=== PATIENT | female | born 1990 | race Two or more races ===

== ENCOUNTER 2016-12-27 09:38 | Observation (INO) | payer SELFPAY ==
[~2016-12-27] VITALS: Ht 152.4 cm; Wt 56.7 kg
[2016-12-27] MEDS ORDERED: IV NORMAL SALINE 1000ML BAG 1,000 ML IV SCH ×2 (10:13→12:15)
--- NOTE | 2016-12-27 10:17 | PHYS DOC ---
Past Medical History Past Medical History: No Pertinent History Past Surgical History: No Surgical History Alcohol Use: None Drug Use: None Adult General Chief Complaint Chief Complaint: VAGINAL BLEEDING HPI HPI Patient is a 26 year old female who presents with complaint of vaginal bleeding and lower abdominal pain. The patient is A1 approximately 17 weeks with last menstrual period August 29, 2016. The patient states that she has had continued spotting off and on during her but started having heavy bleeding and cramping at approximately 0800 this morning. Patient rates pain currently is 8 out of 10. Patient states that the pain stays in her pelvis. The patient has been having heavier bleeding but denies passage of tissue or clot. Patient follows with [facility] for care. Patient had a miscarriage at 2 months during her second . Patient denies any fevers or urinary symptoms. Review of Systems Review of Systems Constitutional: Denies fever or chills [] Eyes: Denies change in visual acuity, redness, or eye pain [] HENT: Denies nasal congestion or sore throat [] Respiratory: Denies cough or shortness of breath [] Cardiovascular: Denies chest pain or edema [] GI: Denies abdominal pain, nausea, vomiting, bloody stools or diarrhea [] : Pelvic pain, vaginal bleeding [] Musculoskeletal: Denies back pain or joint pain [] Integument: Denies rash or skin lesions [] Neurologic: Denies headache, focal weakness or sensory changes [] Current Medications Current Medications Current Medications Medications (Trade) Dose Ordered Sig/Maryann Start Time Stop Time Status Last Admin Dose Admin Sodium Chloride (Iv Sodium Chloride 0.9% 1000ml Bag) 1,000 ml @ 1,000 mls/hr Q1H 12/27/16 10:13 12/27/16 11:12 DC 12/27/16 10:10 1,000 MLS/HR Allergies Allergies Allergies Coded Allergies Type Severity Reaction Last Updated Verified No Known Drug Allergies 12/27/16 No Physical Exam Physical Exam Constitutional: Alert, afebrile, no acute distress. [] HENT: Normocephalic, atraumatic, bilateral external ears normal, oropharynx moist, no oral exudates, nose normal. [] Eyes: PERRLA, EOMI, conjunctiva normal, no discharge. [] Neck: Normal range of motion, no tenderness, supple, no stridor. [] Cardiovascular:Heart rate regular rhythm, no murmur [] Lungs & Thorax: Bilateral breath sounds clear to auscultation [] Abdomen: Bowel sounds normal, soft, no tenderness, no masses, no pulsatile masses. [] Skin: Warm, dry, no erythema, no rash. [] Back: No tenderness, no CVA tenderness. [] Extremities: No tenderness, no cyanosis, no clubbing, ROM intact, no edema. [] Neurologic: Alert and oriented X 3, normal motor function, normal sensory function, no focal deficits noted. [] Current Patient Data Vital Signs Vital Signs Date Time Temp Pulse Resp B/P Pulse Ox O2 Delivery O2 Flow Rate FiO2 12/27/16 11:30 74 15 108/57 99 12/27/16 09:43 98.6 Room Air 98.6 Lab Values Laboratory Tests Test 12/27/16 10:06 White Blood Count 16.1x10^3/uL (4.0-11.0) H Red Blood Count 4.71x10^6/uL (3.50-5.40) Hemoglobin 13.7g/dL (12.0-15.5) Hematocrit 40.5% (36.0-47.0) Mean Corpuscular Volume 86fL (79-100) Mean Corpuscular Hemoglobin 29pg (25-35) Mean Corpuscular Hemoglobin Concent 34g/dL (31-37) Red Cell Distribution Width 13.4% (11.5-14.5) Platelet Count 218x10^3/uL (140-400) Neutrophils (%) (Auto) 82% (31-73) H Lymphocytes (%) (Auto) 11% (24-48) L Monocytes (%) (Auto) 4% (0-9) Eosinophils (%) (Auto) 2% (0-3) Basophils (%) (Auto) 1% (0-3) Neutrophils # (Auto) 13.3x10^3uL (1.8-7.7) H Lymphocytes # (Auto) 1.8x10^3/uL (1.0-4.8) Monocytes # (Auto) 0.6x10^3/uL (0.0-1.1) Eosinophils # (Auto) 0.4x10^3/uL (0.0-0.7) Basophils # (Auto) 0.1x10^3/uL (0.0-0.2) Segmented Neutrophils % 88% (35-66) H Lymphocytes % 7% (24-48) L Monocytes % 3% (0-10) Eosinophils % 2% (0-5) Platelet Estimate Adequate (ADEQUATE) Prothrombin Time 12.6SEC (11.7-14.0) Prothrombin Time INR 1.0 (0.8-1.1) PTT 33SEC (24-38) Urine Color Yellow Urine Clarity Clear Urine pH 8.0 Urine Specific [place] 1.010 Urine Protein Negativemg/dL (NEG-TRACE) Urine Glucose (UA) Negativemg/dL (NEG) Urine Ketones (Stick) Negativemg/dL (NEG) Urine Blood Large (NEG) Urine Nitrite Negative (NEG) Urine Bilirubin Negative (NEG) Urine Urobilinogen Dipstick 0.2mg/dL (0.2 mg/dL) Urine Leukocyte Esterase Trace (NEG) Urine RBC 0/HPF (0-2) Urine WBC 1-4/HPF (0-4) Urine Bacteria 0/HPF (0-FEW) Sodium Level 141mmol/L (136-145) Potassium Level 3.8mmol/L (3.5-5.1) Chloride Level 106mmol/L (98-107) Carbon Dioxide Level 26mmol/L (21-32) Anion Gap 9 (6-14) Blood Urea Nitrogen 7mg/dL (7-20) Creatinine 0.4mg/dL (0.6-1.0) L Estimated GFR (Cockcroft-Gault) 194.5 BUN/Creatinine Ratio 18 (6-20) Glucose Level 79mg/dL (70-99) Calcium Level 8.9mg/dL (8.5-10.1) Magnesium Level 1.7mg/dL (1.8-2.4) L Total Bilirubin 0.4mg/dL (0.2-1.0) Aspartate Amino Transferase (AST) 36U/L (15-37) Alanine Aminotransferase (ALT) 95U/L (14-59) H Alkaline Phosphatase 96U/L (46-116) Total Protein 6.9g/dL (6.4-8.2) Albumin 3.3g/dL (3.4-5.0) L Albumin/Globulin Ratio 0.9 (1.0-1.7) L Laboratory Tests 3/18/17 10:06 Laboratory Tests 12/27/16 10:06 EKG EKG Not performed [] Radiology/Procedures Radiology/Procedures [facility] [address] [place], [place] [id number] IMAGING REPORT Signed PATIENT: KEYONNA CASTILLO ACCOUNT: [id number] : 1990 LOCATION: ER AGE: 26 SEX: F EXAM STATUS: REG ER ORD. PHYSICIAN: KERI EL MD REASON: vaginal bleeding PROCEDURE: PREG MORE THAN OR EQ TO 14 WKS Indication: Vaginal bleeding. Technique: Second trimester limited OB ultrasound was performed. No comparison for this is provided. Findings: There is an intrauterine noted with heart tones of 124 bpm. However, amniotic fluid is decreased with little fluid surrounding the fetus. There is some fluid in the lower uterine segment and the majority of the fluid is noted within an open cervix. Absence of fluid limits evaluation. Full survey was not performed in this early second trimester patient. Presentation is breech. Placenta is not well evaluated. Largest pocket of fluid is almost entirely within the cervix, 7.6 cm. No pockets of fluid within each quadrant are identified. Estimated gestational age by ultrasound is 15 weeks 5 days for an QUIN by ultrasound of June 15, 2017. Biparietal diameter measures 3.01 cm, 15 weeks 4 days. Head circumference measures 11.43 cm, 15 weeks 4 days. Abdominal circumference measures 9.80 cm, 15 weeks 6 days. Femur length measures 1.92 cm, 15 weeks 5 days. HC/AC ratio is 1.17. Estimated weight is not able to be calculated this early in the second trimester. Maternal ovaries are visualized and grossly unremarkable. Case was discussed with Dr. El. Impression: 1. Abnormal exam with the majority of the amniotic fluid noted in the open cervical canal and in the lower uterine segment. Very minimal fluid is noted surrounding the fetus. Oligohydramnios. 2. Fetus measures 15 weeks 5 days with heart tones of 124 bpm. 3. Short-term follow-up to reevaluate the amount of amniotic fluid is recommended. DICTATED and SIGNED BY: VALERIANO CAMERON MD DATE: 12/27/16 1058 CC: KERI EL MD; UNKNOWN PCP NAME ~ [] Course & Med Decision Making Course & Med Decision Making Pertinent Labs and Imaging studies reviewed. (See chart for details) The patient started on IV fluids in the emergency department. Patient's ultrasound results were reported to me by the radiologist, Dr. Cameron. He stated that it appeared the amniotic fluid was protruding through the internal os into the vaginal canal. He recommended consult to [facility] before performing a pelvic exam. I spoke with Dr. Campo of [facility] who agreed and asked that the patient be admitted to her service and would see the patient in hospital as this appears to be an expectant miscarriage. She asked that the patient be admitted under observation care. Dragon Disclaimer Dragon Disclaimer This electronic medical record was generated, in whole or in part, using a voice recognition dictation system. Departure Departure Impression: Primary Impression: Incomplete miscarriage Disposition: ADMITTED INPATIENT Admitting Physician: Other Condition: STABLE KERI EL MD Dec 27, 2016 10:17
[2016-12-27 10:24] LABS: BASO # 0.1 x10^3/uL (0.0-0.2); BASO % 1 % (0-3); EOS % 2 % (0-3); HEMATOCRIT 40.5 % (36.0-47.0); HEMOGLOBIN 13.7 g/dL (12.0-15.5); LYMPH # 1.8 x10^3/uL (1.0-4.8); LYMPH % 11 % (24-48); MEAN CORPUSCULAR HEMOGLOBIN 29 pg (25-35); MEAN CORPUSCULAR HGB CONC 34 g/dL (31-37); MEAN CORPUSCULAR VOLUME 86 fL (79-100); MONO % 4 % (0-9); NEUT % 82 % (31-73); PLATELET COUNT 218 x10^3/uL (140-400); RED BLOOD COUNT 4.71 x10^6/uL (3.50-5.40); RED CELL DISTRIBUTION WIDTH 13.4 % (11.5-14.5); WHITE BLOOD COUNT 16.1 x10^3/uL (4.0-11.0)
[2016-12-27 10:27] LABS: BILIRUBIN,URINE NEGATIVE (NEG); GLUCOSE,URINE NEGATIVE (NEG); NITRITE,URINE NEGATIVE (NEG); PROTEIN,URINE NEGATIVE (NEG-TRACE); UROBILINOGEN,URINE 0.2 mg/dL (0.2 mg/dL)
[2016-12-27 10:32] LABS: CALCIUM 8.9 mg/dL (8.5-10.1); CREATININE 0.4 mg/dL (0.6-1.0); GFR 194.5; POTASSIUM 3.8 mmol/L (3.5-5.1); PROTHROMBIN TIME PATIENT 12.6 SEC (11.7-14.0)
[2016-12-27 10:38] LABS: ALBUMIN 3.3 g/dL (3.4-5.0); ALBUMIN/GLOBULIN RATIO 0.9 (1.0-1.7); MAGNESIUM 1.7 mg/dL (1.8-2.4); TOTAL BILIRUBIN 0.4 mg/dL (0.2-1.0); TOTAL PROTEIN 6.9 g/dL (6.4-8.2)
[2016-12-27 10:39] LABS: BACTERIA,URINE 0 /HPF (0-FEW); RBC,URINE 0 /HPF (0-2)
[2016-12-27 11:02] LABS: % EOS 2 % (0-5); PLT ESTIMATE ADEQUATE (ADEQUATE)
--- NOTE | 2016-12-27 11:19 | RAD ---
Indication: Vaginal bleeding. Technique: Second trimester limited OB ultrasound was performed. No comparison for this is provided. Findings: There is an intrauterine noted with heart tones of 124 bpm. However, amniotic fluid is decreased with little fluid surrounding the fetus. There is some fluid in the lower uterine segment and the majority of the fluid is noted within an open cervix. Absence of fluid limits evaluation. Full survey was not performed in this early second trimester patient. Presentation is breech. Placenta is not well evaluated. Largest pocket of fluid is almost entirely within the cervix, 7.6 cm. No pockets of fluid within each quadrant are identified. Estimated gestational age by ultrasound is 15 weeks 5 days for an QUIN by ultrasound of June 15, 2017. Biparietal diameter measures 3.01 cm, 15 weeks 4 days. Head circumference measures 11.43 cm, 15 weeks 4 days. Abdominal circumference measures 9.80 cm, 15 weeks 6 days. Femur length measures 1.92 cm, 15 weeks 5 days. HC/AC ratio is 1.17. Estimated weight is not able to be calculated this early in the second trimester. Maternal ovaries are visualized and grossly unremarkable. Case was discussed with Dr. Howard. Impression: 1. Abnormal exam with the majority of the amniotic fluid noted in the open cervical canal and in the lower uterine segment. Very minimal fluid is noted surrounding the fetus. Oligohydramnios. 2. Fetus measures 15 weeks 5 days with heart tones of 124 bpm. 3. Short-term follow-up to reevaluate the amount of amniotic fluid is recommended.
[2016-12-27] MEDS ORDERED: ONDANSETRON PF 4 MG/2 ML VIAL. IV PRN (12:15)
[2016-12-27 13:15] VITALS: BP 109/59
[2016-12-27] MEDS ORDERED: PNV1TABL25 PO (13:41)
[2016-12-27] MEDS ORDERED: ACETAMINOPHEN 325 MG TABLET. PO PRN (13:45)
[2016-12-27] MEDS: IV RINGERS,LACTATED 1000ML 1,000 ML IV SCH (14:05)
--- NOTE | 2016-12-27 15:30 | ACF ---
Admission Forms Criteria [facility] Clinical Indications for Admission to Inpatient Care (Place 'X' for any and all applicable criteria): Hospital admission is needed for appropriate care of the patient because of ANY ONE of the following (1)(2)(3): [ ]I. Hemodynamic instability, as indicated by ALL of the following (1)(2)(3)( 4)(5): [ ]a) Vital signs or other findings not as expected for chronic patient condition or baseline [ ]b) Instability indicated by ANY ONE of the following: [ ]i) Hypotension [ ]ii) Symptomatic tachycardia unresponsive to treatment (eg, analgesia, fluids, sedation as indicated) [ ]iii) Inadequate perfusion indicated by ANY ONE of the following: [ ]A. Lactic acidosis (greater than 2 mmol/ L) [ ]B. New abnormal capillary refill ( greater than 3 seconds) [ ]C. Reduced urine output [ ]D. New altered mental status [ ]iv) Orthostatic vital sign changes unresponsive to treatment (eg, fluids) [ ]v) Multiple IV fluid boluses required to maintain adequate blood pressure or perfusion [ ]vi) IV inotropic or vasopressor medication required to maintain adequate blood pressure or perfusion [ ]II. Obstetric infection requiring hospitalization indicated by ANY ONE of the following(13)(14): [ ]a) Chorioamnionitis [ ]b) Endometritis (except mild endometritis) [ ]c) Pelvic abscess [ ]d) Peritonitis [ ]e) Septic pelvic thrombophlebitis [ ]III. Amniotic fluid or pulmonary embolism(4)(5)(6) [ ]IV. Suspected peritonitis or ectopic requiring monitoring beyond scope of 24 hours or observation care(7)(8) [ ]V. compromise requiring hospitalization indicated by ALL of the following(9)(10): [ ]a) compromise indicated by ANY ONE of the following(11): [ ]i) Abnormal heart rate monitoring [ ]ii) Abnormal contraction stress test [ ]iii) Abnormal biophysical profile [ ]iv) Abnormal Doppler flow in vessels (ie, Doppler velocimetry) (12) [ ]b) Persistence of compromise indicators during evaluation and observation monitoring [ ]. Ovarian hyperstimulation syndrome requiring hospitalization[A] indicated by ALL of the following(15): [ ]a) Recent ovarian stimulation with gonadotropins, or evidence on ultrasound of spontaneous emergence of large number of ovarian follicles [ ]b) Evidence of severe ovarian hyperstimulation syndrome indicated by ANY ONE of the following: [ ]i) Abdominal pain unresponsive to oral therapy [ ]ii) Acute respiratory distress syndrome [ ]iii) Electrolyte imbalance ( eg, hyponatremia, hyperkalemia) [ ]iv) Elevated liver enzymes [ ]v) Evidence of thromboembolism [ ]vi) Hemoconcentration (hematocrit greater than 45 % (0.45)) [ ]vii) Inability to maintain oral intake adequate to prevent hemoconcentration [ ]viii) Marked hypotension from baseline (eg, SBP 20 mmHg below patients usual pressure) [ ]ix) Oliguria or anuria [ ]x) Ovarian torsion [ ]xi) Pleural or pericardial effusion on x-ray or echocardiogram [ ]xii) Rapid increase in serum creatinine to greater than 1.2 mg/dL (106 micromoles/L) or creatinine clearance less than 50 mL/min/1.73m2 (0.84 mL/ sec/1.73m2) [ ]xiii) Ruptured ovarian cyst with hemorrhage [ ]xiv) Severe abdominal pain or peritoneal signs [ ]xv) Tense ascites that cannot be managed with paracentesis in outpatient setting [ ]VII.Pelvic infection requiring hospitalization indicated by ANY ONE of the following (16): [ ]a) Outpatient treatment has failed or is not appropriate (eg, inpatient monitoring required) [ ]b) Pelvic abscess [ ]c) Surgical emergency cannot be excluded (eg, rigid abdomen) [ ]d) Vomiting precluding outpatient and observation care management VIII. loss complications requiring inpatient medical treatment indicated by ANY ONE of the following (4)(7)(9): [ ]a) Fever [ ]b) Peritonitis [ ]c) Sepsis [ ]d) Severe abdominal pain [ ]IX. or patient requiring monitoring for severe heart failure, pulmonary disease, or other comorbid condition (eg, peripartum cardiomyopathy) (4)(17) [ ]X. patient with rupture of membranes requiring hospitalization indicated by ANY ONE of the following: [ ]a) Chorioamnionitis, cloudy amniotic fluid, or other evidence of infection [ ]b) compromise or other need for monitoring (11) [ ]c) Gestation longer than 23 weeks and ANY ONE of the following: [ ]i) Abnormal (noncephalic) presentation [ ]ii) Inadequate home environment (eg, home too far from hospital, unable to rapidly return to hospital) [ ]d) Temperature greater than 100.4 degrees F (38 degrees C)( oral) [ ]e) Threatened labor requiring monitoring beyond scope (eg, over 24 hours) of observation Care [ ] XI. complications, including severe lacerations, infections, or retained placenta (19) [X] XII.Uterine bleeding with high-risk features indicated by ANY ONE of the following (4): [X]a) Active major hemorrhage (eg, hemorrhage) [ ]b) Coagulopathy with active bleeding [ ]c) Gestational trophoblastic disease (eg, molar ) (20 ) [ ]d) (longer than 23 weeks) and ANY ONE of the following: [ ]i) Pain [ ]ii) Placental abruption, known or suspected [ ]iii) Placenta accrete, known or suspected(21) [ ]iv) Placenta previa, known or suspected [ ]v) Vasa previa [ ]e) Severe anemia [ ]XIII. Obstetric or Gynecologic Disease, condition or symptom for which ANY ONE of the following: [ ]a) Emergency and observation care have failed or are not considered appropriate ( Also use General Criteria: Observation Care Criteria as appropriate) [ ]b) Presence of a General Admission Criteria or Pediatric General Admission Criteria The original [facility] [employer] content created by [facility] has been revised. The portions of the content which have been revised are identified through the use of italic text or in bold, and [facility] has neither reviewed nor approved the modified material.All other unmodified content is copyright [facility]. Please see references footnoted in the original [facility] edition 2016 Admission Criteria Met?: Yes PHILIP FISHER Dec 27, 2016 15:30
[2016-12-27 17:50] VITALS: BP 107/61
[2016-12-27] MEDS ORDERED: BUTORPHANOL 2 MG VIAL. IV PRN (20:15)
[2016-12-27 21:00] VITALS: BP 110/63
[2016-12-28] MEDS: IV RINGERS,LACTATED 1000ML 1,000 ML IV SCH ×2 (00:31→09:45)
[2016-12-28 00:40] VITALS: BP 104/59
[2016-12-28 05:25] VITALS: BP 98/54
--- NOTE | 2016-12-28 10:23 | PDOC ---
SUBJECTIVE Subjective with bleeding OBJECTIVE Objective 18 weeks of Has vaginal bleeding Vital Signs Vital Signs Date Time Temp Pulse Resp B/P Pulse Ox O2 Delivery O2 Flow Rate FiO2 12/28/16 05:25 98.4 82 18 98/54 98 Room Air 98.4 12/28/16 00:40 97.9 73 18 104/59 99 Room Air 97.9 12/27/16 21:00 97.9 86 20 110/63 100 Room Air 97.9 12/27/16 17:50 97.9 82 16 107/61 100 Room Air 97.9 12/27/16 13:15 97.0 75 20 109/59 97 Room Air 97.0 12/27/16 12:30 74 15 112/58 99 12/27/16 12:00 82 15 100/61 99 12/27/16 11:30 74 15 108/57 99 12/27/16 11:00 80 15 106/53 99 12/27/16 10:30 76 15 107/53 99 I & O Intake and Output 12/28/16 07:00 Intake Total 2032 ml Balance 2032 ml Intake IV Total 1000 ml Other 1032 ml # Voids 10 PHYSICAL EXAM Physical Exam Abdomen soft Vaginal spotting Feeling ok ASSESSMENT/PLAN Assessment/Plan Advised Bedrest Patient can go home Will see her in office on for followup Problems: SUSY CHAWLA MD Dec 28, 2016 10:23
[2016-12-28 10:48] VITALS: BP 100/62
== END 2016-12-28 10:57 | disposition home or self-care (01) ==
LOC: ER 09:38 → 3 NORTH 11:48
PROVIDERS: ADMIT Obstetrics & Gynecology; ATTEND Obstetrics & Gynecology
DX: O03.4 Incomplete spontaneous abortion without complication (principal); O41.02X0 Oligohydramnios, second trimester, not applicable or unspecified; Z3A.17 17 weeks gestation of pregnancy
CPT/HCPCS: 36415; 76805; 80053; 81001; 81025; 83735; 85007; 85027; 85610; 85730; 86850; 86900; 86901; 87086; 96360; 96361; 99285; G0378; J7030; J7120; G0379

== ENCOUNTER 2016-12-28 19:16 | Inpatient (IN) | payer SELFPAY ==
[~2016-12-28] VITALS: Ht 152.4 cm; Wt 58.3 kg
[~2016-12-28 19:16] MED LIST: PNV1TABL25 PO
[2016-12-28] MEDS ORDERED: IV NORMAL SALINE 1000ML BAG 1,000 ML IV ONE (19:45)
[2016-12-28] MEDS ORDERED: ONDANSETRON PF 4 MG/2 ML VIAL. IV ONE (19:45)
[2016-12-28] MEDS ORDERED: MORPHINE SULFATE 4 MG/ML DISP.SYRIN. IV/SQ PRN (19:45)
--- NOTE | 2016-12-28 20:06 | ED.ADGEN ---
Past Medical History Past Medical History: No Pertinent History Past Surgical History: No Surgical History Alcohol Use: None Drug Use: None Adult General Chief Complaint Chief Complaint: VAGINAL BLEEDING HPI HPI Patient is a 26 year old woman, , history of 1 previous miscarriage 2 years ago, of unknown cause. Patient presents to the emergency department with vaginal bleeding. Patient was discharged from the hospital earlier this morning , after admission for incomplete miscarriage. She was told to return home, to continue bedrest, and to return if she was having significant bleeding. Patient states that she soaked through 3 pads over the past several hours. Is passing blood and fluid. Denies any nausea or vomiting, is having cramping previously was having no pain currently. Patient is primarily Stateless speaking, translation is assisted with family at bedside at patient's request. Denies any fevers or chills. Denies any chest pain or shortness of breath. No injuries. Review of Systems Review of Systems Constitutional: Denies fever or chills. [] Eyes: Denies change in visual acuity. [] HENT: Denies nasal congestion or sore throat. [] Respiratory: Denies cough or shortness of breath. [] Cardiovascular: Denies chest pain or edema. [] GI: Lower quadrant abdominal cramping. No nausea, vomiting, bloody stools or diarrhea. [] : Denies dysuria. [] Bleeding and drainage from the vagina. Feeling of tissue. Musculoskeletal: Denies back pain or joint pain. [] Integument: Denies rash. [] Neurologic: Denies headache, focal weakness or sensory changes. [] Endocrine: Denies polyuria or polydipsia. [] Lymphatic: Denies swollen glands. [] Psychiatric: Denies depression or anxiety. [] Current Medications Current Medications Current Medications Medications (Trade) Dose Ordered Sig/Maryann Start Time Stop Time Status Last Admin Dose Admin Clindamycin Phosphate (Cleocin 600 Mg Premix) 50 ml @ 100 mls/hr Q8HRS 12/29/16 06:00 Morphine Sulfate 4 mg 4 mg PRN Q2HR PRN 12/28/16 22:30 12/29/16 22:29 Ondansetron HCl (Zofran) 4 mg PRN Q8HRS PRN 12/28/16 22:30 12/29/16 22:29 Ondansetron HCl 4 mg 4 mg 1X ONCE 12/28/16 19:45 12/28/16 20:05 DC 12/28/16 19:48 4 MG Sodium Chloride (Iv Sodium Chloride 0.9% 1000ml Bag) 1,000 ml @ 125 mls/hr Q8H 12/28/16 22:18 12/29/16 22:17 Allergies Allergies Allergies Coded Allergies Type Severity Reaction Last Updated Verified No Known Drug Allergies 12/27/16 No Physical Exam Physical Exam Constitutional: Well developed, well nourished, no acute distress, ill in appearance. [] HENT: Normocephalic, atraumatic, bilateral external ears normal, oropharynx moist, no oral exudates, nose normal. [] Eyes: PERRLA, EOMI, conjunctiva normal, no discharge. [] Neck: Normal range of motion, no tenderness, supple, no stridor. [] Cardiovascular:Heart rate regular rhythm, no murmur, S1, S2, rubs or gallops. [] Lungs & Thorax: Bilateral breath sounds clear to auscultation, no wheezing, rhonchi, rales. No chest tenderness or crepitus. [] Abdomen: Bowel sounds normal, soft, mild tenderness to palpation in the pelvic region, no masses, no pulsatile masses. [] Skin: Warm, dry, no erythema, no rash. [] Back: No tenderness, no CVA tenderness. [] Extremities: No tenderness, no cyanosis, no clubbing, ROM intact, no edema. [] Neurologic: Alert and oriented X 3, normal motor function, normal sensory function, no focal deficits noted. [] Psychologic: Affect normal, judgement normal, mood normal. [] Pelvic examination: Patient with membranes protruding, which did rupture during examination. Patient with pain on examination, noted to have white yellow purulent material in the vault, no active bleeding noted, patient is not having contractions currently. Unable to identify large amounts of tissue consistent with a fetus at this time, patient's os is closed. Current Patient Data Vital Signs Vital Signs Date Time Temp Pulse Resp B/P Pulse Ox O2 Delivery O2 Flow Rate FiO2 12/28/16 19:54 22 12/28/16 19:27 99.2 99 116/64 100 Room Air 99.2 Lab Values Laboratory Tests Test 12/28/16 19:26 12/28/16 19:37 12/28/16 21:28 Urine Collection Type Unknown Urine Color Straw Urine Clarity Clear Urine pH 7.0 Urine Specific [place] <=1.005 Urine Protein Negativemg/dL (NEG-TRACE) Urine Glucose (UA) Negativemg/dL (NEG) Urine Ketones (Stick) 40mg/dL (NEG) Urine Blood Large (NEG) Urine Nitrite Negative (NEG) Urine Bilirubin Negative (NEG) Urine Urobilinogen Dipstick 0.2mg/dL (0.2 mg/dL) Urine Leukocyte Esterase Moderate (NEG) Urine RBC 20-40/HPF (0-2) Urine WBC 11-20/HPF (0-4) Urine Squamous Epithelial Cells Few/LPF Urine Bacteria Few/HPF (0-FEW) Urine Mucus Slight/LPF White Blood Count 15.6x10^3/uL (4.0-11.0) H Red Blood Count 5.13x10^6/uL (3.50-5.40) Hemoglobin 14.8g/dL (12.0-15.5) Hematocrit 43.7% (36.0-47.0) Mean Corpuscular Volume 85fL (79-100) Mean Corpuscular Hemoglobin 29pg (25-35) Mean Corpuscular Hemoglobin Concent 34g/dL (31-37) Red Cell Distribution Width 13.1% (11.5-14.5) Platelet Count 222x10^3/uL (140-400) Neutrophils (%) (Auto) 86% (31-73) H Lymphocytes (%) (Auto) 9% (24-48) L Monocytes (%) (Auto) 4% (0-9) Eosinophils (%) (Auto) 1% (0-3) Basophils (%) (Auto) 0% (0-3) Neutrophils # (Auto) 13.4x10^3uL (1.8-7.7) H Lymphocytes # (Auto) 1.3x10^3/uL (1.0-4.8) Monocytes # (Auto) 0.6x10^3/uL (0.0-1.1) Eosinophils # (Auto) 0.2x10^3/uL (0.0-0.7) Basophils # (Auto) 0.0x10^3/uL (0.0-0.2) Segmented Neutrophils % 65% (35-66) Band Neutrophils % 18% (0-9) H Lymphocytes % 9% (24-48) L Monocytes % 6% (0-10) Eosinophils % 2% (0-5) Toxic Granulation Slight Platelet Estimate Adequate (ADEQUATE) Sodium Level 139mmol/L (136-145) Potassium Level 3.3mmol/L (3.5-5.1) L Chloride Level 102mmol/L (98-107) Carbon Dioxide Level 23mmol/L (21-32) Anion Gap 14 (6-14) Blood Urea Nitrogen 5mg/dL (7-20) L Creatinine 0.5mg/dL (0.6-1.0) L Estimated GFR (Cockcroft-Gault) 150.3 Glucose Level 83mg/dL (70-99) Calcium Level 9.5mg/dL (8.5-10.1) Lactic Acid Level 0.7mmol/L (0.4-2.0) Laboratory Tests 12/28/16 19:37 Laboratory Tests 12/28/16 19:37 EKG EKG ECG: Sinus tachycardia, heart rate 112 bpm, no ectopy. As interpreted by me. Radiology/Procedures Radiology/Procedures [] [facility] [address] [place], [place] [id number] IMAGING REPORT Signed PATIENT: KEYONNA CASTILLO ACCOUNT: [id number] : 1990 LOCATION: ER AGE: 26 SEX: F EXAM STATUS: REG ER ORD. PHYSICIAN: KATTY WATTS DO REASON: Incomplete miscarriage PROCEDURE: OB LIMITED PROCEDURE Limited Ob ultrasound HISTORY 26-year-old female with vaginal bleeding, provided history of incomplete miscarriage. Patient admitted to the hospital last night and released today. Patient returns to ER tonight with pain and low grade temp. TECHNIQUE Transverse and longitudinal sonography of the pelvis is performed utilizing transabdominal and transvaginal transducers. COMPARISON December 27, 2016. FINDINGS Transabdominal imaging demonstrates the uterus to measure 10.0 cm in transverse dimension. A posterior placenta is seen. The cervix is imaged, without fluid seen within the cervical canal. A fetus is visualized within the uterus, with overall ultrasound gestational age of 15 weeks 3 days. No amniotic fluid is seen about the fetus. No heart rate can be obtained. The fetus appears to be in breech position. Neither ovary is visualized. Transvaginal imaging demonstrates no fluid within the cervical canal. IMPRESSION No intrauterine or cervical amniotic fluid is present. Intrauterine fetus visualized in breech position without a heart rate present. Electronically signed by: Domenica Martinez (Dec 28, 2016 21:37:16) DICTATED and SIGNED BY: DOMENICA MARTINEZ MD DATE: 12/28/162136 CC: KATTY WATTS DO; UNKNOWN PCP NAME ~ Course & Med Decision Making Course & Med Decision Making Pertinent Labs and Imaging studies reviewed. (See chart for details) Patient with foul-smelling material noted in the vaginal vault and cervix, unable to clear, no active bleeding. Os is closed. Concern for retained products risk for infection. Patient is resting comfortably at this time, temperature is 99.2 in the emergency department, heart rate is in the 90s to low 100s, blood pressure 1 teens over 80s. I did discuss findings as above with Dr. Larson, who evaluated the patient this morning, and to discharge her for bedrest after the patient had not had progression of her miscarriage. I discussed my concerns of the patient may be developing an infection, she recommends repeating ultrasound at this time, we have blood work that is pending , will accept the patient to her service. Ultrasound reveals closed os is stated , with fetus in breech position, with no heart tones noted, a change from the previous ultrasound where low heart tones were noted, with an open os. Patient with leukocytosis of 15.6, concern for infection, with retained products of conception. Above discussed with Dr. Larson, will initiate clindamycin, continue to monitor closely. Patient is mildly tachycardic, low 100s to 1 teens, blood pressures 1 teens over 60s, oxygen saturation is 90% on room air. She is resting comfortably at this time. Is agreeable plan for admission to the hospital, for antibiotic, and OB intervention. Dragon Disclaimer Dragon Disclaimer This electronic medical record was generated, in whole or in part, using a voice recognition dictation system. Departure Impression: Primary Impression: Incomplete miscarriage Additional Impressions: Retained products of conception Leukocytosis Tachycardia Disposition: 09 ADMITTED INPATIENT Admitting Physician: Other Condition: IMPROVED Problem Qualifiers KATTY WATTS DO Dec 28, 2016 20:06
[2016-12-28 20:16] LABS: BASO % 0 % (0-3); EOS % 1 % (0-3); HEMATOCRIT 43.7 % (36.0-47.0); HEMOGLOBIN 14.8 g/dL (12.0-15.5); LYMPH # 1.3 x10^3/uL (1.0-4.8); LYMPH % 9 % (24-48); MEAN CORPUSCULAR HEMOGLOBIN 29 pg (25-35); MEAN CORPUSCULAR HGB CONC 34 g/dL (31-37); MEAN CORPUSCULAR VOLUME 85 fL (79-100); MONO % 4 % (0-9); NEUT % 86 % (31-73); PLATELET COUNT 222 x10^3/uL (140-400); RED BLOOD COUNT 5.13 x10^6/uL (3.50-5.40); RED CELL DISTRIBUTION WIDTH 13.1 % (11.5-14.5); WHITE BLOOD COUNT 15.6 x10^3/uL (4.0-11.0)
[2016-12-28 20:17] LABS: BILIRUBIN,URINE NEGATIVE (NEG); GLUCOSE,URINE NEGATIVE (NEG); NITRITE,URINE NEGATIVE (NEG); PROTEIN,URINE NEGATIVE (NEG-TRACE); UROBILINOGEN,URINE 0.2 mg/dL (0.2 mg/dL)
[2016-12-28 20:26] LABS: CALCIUM 9.5 mg/dL (8.5-10.1); CREATININE 0.5 mg/dL (0.6-1.0); GFR 150.3; POTASSIUM 3.3 mmol/L (3.5-5.1)
[2016-12-28 20:28] LABS: BACTERIA,URINE FEW /HPF (0-FEW); RBC,URINE 20-40 /HPF (0-2); SQUAMOUS EPITHELIAL CELL,UR FEW /LPF
[2016-12-28] MEDS ORDERED: MORPHINE SULFATE 4 MG/ML DISP.SYRIN. IV ONE (20:30)
[2016-12-28 20:59] LABS: % EOS 2 % (0-5)
[2016-12-28 21:01] LABS: PLT ESTIMATE ADEQUATE (ADEQUATE); TOXIC GRANULATION SLIGHT
--- NOTE | 2016-12-28 21:38 | RAD ---
PROCEDURE Limited Ob ultrasound HISTORY 26-year-old female with vaginal bleeding, provided history of incomplete miscarriage. Patient admitted to the hospital last night and released today. [facility] and [facility] grade temp. TECHNIQUE Transverse and longitudinal sonography of the pelvis is performed utilizing transabdominal and transvaginal transducers. COMPARISON December 27, 2016. FINDINGS Transabdominal imaging demonstrates the uterus to measure 10.0 cm in transverse dimension. A posterior placenta is seen. The cervix is imaged, without fluid seen within the cervical canal. A fetus is visualized within the uterus, with overall ultrasound gestational age of 15 weeks 3 days. No amniotic fluid is seen about the fetus. No heart rate can be obtained. The fetus appears to be in breech position. Neither ovary is visualized. Transvaginal imaging demonstrates no fluid within the cervical canal. IMPRESSION No intrauterine or cervical amniotic fluid is present. Intrauterine fetus visualized in breech position without a heart rate present. Electronically signed by: Wendy Martinez (Dec 28, 2016 21:37:16)
[2016-12-28] MEDS ORDERED: CLINDAMYCIN 600MG PREMIX 50 ML IV ONE (22:15)
[2016-12-28] MEDS ORDERED: ONDANSETRON PF 4 MG/2 ML VIAL. IV PRN (22:30)
[2016-12-28] MEDS ORDERED: MORPHINE SULFATE 4 MG/ML DISP.SYRIN. IV PRN (22:30)
[2016-12-28] MEDS: IV NORMAL SALINE 1000ML BAG 1,000 ML IV SCH (22:46)
[2016-12-28 23:09] VITALS: BP 107/63
[2016-12-29 03:29] VITALS: BP 84/48
[2016-12-29] MEDS ORDERED: IV NORMAL SALINE 1000ML BAG 1,000 ML IV ONE (04:00)
[2016-12-29 04:02] LABS: BASO % 0 % (0-3); EOS % 1 % (0-3); HEMATOCRIT 32.3 % (36.0-47.0); HEMOGLOBIN 10.7 g/dL (12.0-15.5); LYMPH # 1.2 x10^3/uL (1.0-4.8); LYMPH % 9 % (24-48); MEAN CORPUSCULAR HEMOGLOBIN 29 pg (25-35); MEAN CORPUSCULAR HGB CONC 33 g/dL (31-37); MEAN CORPUSCULAR VOLUME 87 fL (79-100); MONO % 6 % (0-9); NEUT % 84 % (31-73); PLATELET COUNT 164 x10^3/uL (140-400); RED BLOOD COUNT 3.72 x10^6/uL (3.50-5.40); RED CELL DISTRIBUTION WIDTH 13.2 % (11.5-14.5); WHITE BLOOD COUNT 13.5 x10^3/uL (4.0-11.0)
[2016-12-29 04:17] LABS: CALCIUM 8.1 mg/dL (8.5-10.1); CREATININE 0.4 mg/dL (0.6-1.0); GFR 194.5; POTASSIUM 3.5 mmol/L (3.5-5.1)
[2016-12-29 04:59] VITALS: BP 108/60
[2016-12-29] MEDS ORDERED: BUTORPHANOL 2 MG VIAL. IV PRN (05:00)
[2016-12-29] MEDS: IV NORMAL SALINE 1000ML BAG 1,000 ML IV SCH (05:03)
[2016-12-29] MEDS ORDERED: MISOPROSTOL 100 MCG TABLET PO SCH (05:30)
[2016-12-29] MEDS: CLINDAMYCIN 600MG PREMIX 50 ML IV SCH ×3 (06:02→21:59)
[2016-12-29] MEDS ORDERED: OXYTOCIN 30 UNIT/500 ML PREMIX 500 ML IV ONE ×2 (09:29→10:29)
[2016-12-29] MEDS ORDERED: OXYTOCIN in NORMAL SALINE PREMIX 30 UNIT/500 ML BAG. IV ONE (10:00)
--- NOTE | 2016-12-29 12:31 | PDOC ---
SUBJECTIVE Subjective Patient having pelvic pain with and vaginal bleeding for 2 days OBJECTIVE Objective Patient has 14 weeks with no heart tones Vital Signs Vital Signs Date Time Temp Pulse Resp B/P Pulse Ox O2 Delivery O2 Flow Rate FiO2 12/29/16 04:59 98.4 96 20 108/60 Room Air 98.4 12/29/16 03:29 98.1 93 18 84/48 97 Room Air 98.1 12/29/16 00:00 Room Air 12/28/16 23:09 97.3 104 20 107/63 97 Room Air 97.3 12/28/16 22:32 100 112/64 98 Room Air 12/28/16 22:12 104 112/65 97 Room Air 12/28/16 21:52 98 103/60 98 Room Air 12/28/16 21:32 95 108/61 98 Room Air 12/28/16 21:12 95 112/62 98 Room Air 12/28/16 20:52 96 113/58 98 Room Air 12/28/16 20:38 104 116/61 12/28/16 20:12 104 116/60 98 Room Air 12/28/16 19:54 22 12/28/16 19:33 95 116/64 12/28/16 19:27 99.2 99 16 116/64 100 Room Air 99.2 I & O Intake and Output 12/29/16 07:00 Intake Total 1300 ml Balance 1300 ml Intake Oral 300 ml IV Total 1000 ml # Voids 1 PHYSICAL EXAM Physical Exam Abdomen soft 14 weeks Cervix closed Bleeding some ASSESSMENT/PLAN Assessment/Plan Induction done with Cytotec 100 microgram one dose Patient delivered Fetus Baby Boy along with Placenta No hemorrhage Problems: COMMENT Lab Laboratory Tests Test 12/28/16 19:26 12/28/16 19:37 12/28/16 21:28 12/29/16 03:34 Urine Collection Type Unknown Urine Color Straw Urine Clarity Clear Urine pH 7.0 Urine Specific [place] <=1.005 Urine Protein Negativemg/dL (NEG-TRACE) Urine Glucose (UA) Negativemg/dL (NEG) Urine Ketones (Stick) 40mg/dL (NEG) Urine Blood Large (NEG) Urine Nitrite Negative (NEG) Urine Bilirubin Negative (NEG) Urine Urobilinogen Dipstick 0.2mg/dL (0.2 mg/dL) Urine Leukocyte Esterase Moderate (NEG) Urine RBC 20-40/HPF (0-2) Urine WBC 11-20/HPF (0-4) Urine Squamous Epithelial Cells Few/LPF Urine Bacteria Few/HPF (0-FEW) Urine Mucus Slight/LPF White Blood Count 15.6x10^3/uL (4.0-11.0) 13.5x10^3/uL (4.0-11.0) Red Blood Count 5.13x10^6/uL (3.50-5.40) 3.72x10^6/uL (3.50-5.40) Hemoglobin 14.8g/dL (12.0-15.5) 10.7g/dL (12.0-15.5) Hematocrit 43.7% (36.0-47.0) 32.3% (36.0-47.0) Mean Corpuscular Volume 85fL (79-100) 87fL (79-100) Mean Corpuscular Hemoglobin 29pg (25-35) 29pg (25-35) Mean Corpuscular Hemoglobin Concent 34g/dL (31-37) 33g/dL (31-37) Red Cell Distribution Width 13.1% (11.5-14.5) 13.2% (11.5-14.5) Platelet Count 222x10^3/uL (140-400) 164x10^3/uL (140-400) Neutrophils (%) (Auto) 86% (31-73) 84% (31-73) Lymphocytes (%) (Auto) 9% (24-48) 9% (24-48) Monocytes (%) (Auto) 4% (0-9) 6% (0-9) Eosinophils (%) (Auto) 1% (0-3) 1% (0-3) Basophils (%) (Auto) 0% (0-3) 0% (0-3) Neutrophils # (Auto) 13.4x10^3uL (1.8-7.7) 11.3x10^3uL (1.8-7.7) Lymphocytes # (Auto) 1.3x10^3/uL (1.0-4.8) 1.2x10^3/uL (1.0-4.8) Monocytes # (Auto) 0.6x10^3/uL (0.0-1.1) 0.8x10^3/uL (0.0-1.1) Eosinophils # (Auto) 0.2x10^3/uL (0.0-0.7) 0.2x10^3/uL (0.0-0.7) Basophils # (Auto) 0.0x10^3/uL (0.0-0.2) 0.0x10^3/uL (0.0-0.2) Segmented Neutrophils % 65% (35-66) Band Neutrophils % 18% (0-9) Lymphocytes % 9% (24-48) Monocytes % 6% (0-10) Eosinophils % 2% (0-5) Toxic Granulation Slight Platelet Estimate Adequate (ADEQUATE) Sodium Level 139mmol/L (136-145) 140mmol/L (136-145) Potassium Level 3.3mmol/L (3.5-5.1) 3.5mmol/L (3.5-5.1) Chloride Level 102mmol/L (98-107) 108mmol/L (98-107) Carbon Dioxide Level 23mmol/L (21-32) 22mmol/L (21-32) Anion Gap 14 (6-14) 10 (6-14) Blood Urea Nitrogen 5mg/dL (7-20) 6mg/dL (7-20) Creatinine 0.5mg/dL (0.6-1.0) 0.4mg/dL (0.6-1.0) Estimated GFR (Cockcroft-Gault) 150.3 194.5 Glucose Level 83mg/dL (70-99) 102mg/dL (70-99) Calcium Level 9.5mg/dL (8.5-10.1) 8.1mg/dL (8.5-10.1) Lactic Acid Level 0.7mmol/L (0.4-2.0) SUSY CHAWLA MD Dec 29, 2016 12:31
[2016-12-29 16:00] VITALS: BP 97/55
[2016-12-29] MEDS ORDERED: IBUPROFEN 800 MG TABLET. PO PRN (16:00)
[2016-12-29 23:08] VITALS: BP 104/58
[2016-12-30 05:56] VITALS: BP 81/45
[2016-12-30] MEDS: CLINDAMYCIN 600MG PREMIX 50 ML IV SCH (05:59)
[2016-12-30 07:24] LABS: BASO % 0 % (0-3); EOS % 3 % (0-3); HEMOGLOBIN 10.4 g/dL (12.0-15.5); LYMPH # 1.5 x10^3/uL (1.0-4.8); LYMPH % 16 % (24-48); MEAN CORPUSCULAR HEMOGLOBIN 29 pg (25-35); MEAN CORPUSCULAR HGB CONC 33 g/dL (31-37); MEAN CORPUSCULAR VOLUME 87 fL (79-100); MONO % 7 % (0-9); NEUT % 74 % (31-73); PLATELET COUNT 166 x10^3/uL (140-400); RED BLOOD COUNT 3.56 x10^6/uL (3.50-5.40); WHITE BLOOD COUNT 9.8 x10^3/uL (4.0-11.0)
--- NOTE | 2016-12-30 08:50 | PDOC ---
SUBJECTIVE Subjective Patient doing good OBJECTIVE Objective Vital signs stable Vital Signs Vital Signs Date Time Temp Pulse Resp B/P Pulse Ox O2 Delivery O2 Flow Rate FiO2 12/30/16 05:56 97.9 74 20 81/45 98 Room Air 97.9 12/29/16 23:08 97.7 81 18 104/58 97.7 12/29/16 16:00 98.4 77 18 97/55 Room Air 98.4 I & O Intake and Output 12/30/16 07:00 Intake Total 550 ml Balance 550 ml IV Total 550 ml PHYSICAL EXAM Physical Exam Abdomen soft Not much vaginal bleeding ASSESSMENT/PLAN Assessment/Plan Patient going home today will see her in 2 weeks Problems: COMMENT Lab Laboratory Tests Test 12/30/16 06:55 White Blood Count 9.8x10^3/uL (4.0-11.0) Red Blood Count 3.56x10^6/uL (3.50-5.40) Hemoglobin 10.4g/dL (12.0-15.5) Hematocrit 31.0% (36.0-47.0) Mean Corpuscular Volume 87fL (79-100) Mean Corpuscular Hemoglobin 29pg (25-35) Mean Corpuscular Hemoglobin Concent 33g/dL (31-37) Red Cell Distribution Width 13.0% (11.5-14.5) Platelet Count 166x10^3/uL (140-400) Neutrophils (%) (Auto) 74% (31-73) Lymphocytes (%) (Auto) 16% (24-48) Monocytes (%) (Auto) 7% (0-9) Eosinophils (%) (Auto) 3% (0-3) Basophils (%) (Auto) 0% (0-3) Neutrophils # (Auto) 7.3x10^3uL (1.8-7.7) Lymphocytes # (Auto) 1.5x10^3/uL (1.0-4.8) Monocytes # (Auto) 0.7x10^3/uL (0.0-1.1) Eosinophils # (Auto) 0.3x10^3/uL (0.0-0.7) Basophils # (Auto) 0.0x10^3/uL (0.0-0.2) SUSY CHAWLA MD Dec 30, 2016 08:50
[2016-12-30 09:36] VITALS: BP 90/49
--- NOTE | 2016-12-31 13:42 | PATHOLOGY ---
PATHOLOGY REPORT * * * * * * * * FINAL DIAGNOSIS: 65 gram placenta of an estimated 16-17 weeks gestation with attached membranes and umbilical cord: - Acute chorioamnionitis. - Acute funisitis. - Villous edema. Macerated fetus (81 grams). (BONYM:; d/t: 12/31/16) REPORT ELECTRONICALLY SIGNED BY: Roberto Mitchell M.D. DATE/TIME: 12/31/2016 13:41 * * * * * * * * GROSS PATHOLOGY: The specimen is received in formalin labeled "Valeria Castillo," and additionally labeled on the requisition as, "15 week fetus with placenta". Received is a serrano placenta with a trimmed placental weight of 65 g and measuring 7.5 x 6.6 x 2.4 cm. The membranes are pale macdonald and transparent to translucent in appearance, with the site of membrane rupture located 2.9 cm from the closest placental margin. The surface is intact with a marginally inserted umbilical cord. The 3 vessel umbilical cord measures 17.5 cm in length by 0.6 cm in diameter. The umbilical cord is white-macdonald in appearance with no evidence of helical twisting. The maternal surface is pink-macdonald and shaggy in appearance. Sectioning reveals pink-macdonald cut surfaces with no grossly distinct nodules or lesions. The specimen is submitted representatively as follows: A1 umbilical cord and membrane roll A2-A3 full-thickness placental cross-sections. Also received within the specimen container is an 81 g fetus displaying the following measurements: Head circumference: 10.1 cm [place]-rump: 12.1 cm [place]-heel: 17.9 Foot length: 1.7 cm Hand length: 1.5 cm. Both arms and legs are present, displaying a total of 10 fingers and toes. The skin has an overall dusky graham-macdonald appearance, with a white area located at the anterior aspect of the neck. The mouth and anus are probe patent. The ear buds are symmetrical. The eye distance is 1.1 cm. Gross photographs are taken. (CAA; 12/30/2016) INITIAL CPT CODE(S): A; 93792 Professional services performed by [employer] at [address] [address] Technical services performed by [employer] at [address] [place] [address], [address], [place] [address]. SPECIMEN(S) RECEIVED: A.15 week fetus and placenta CLINICAL HISTORY: Spontaneous vaginal delivery of non-viable fetus, 26 yo with 15 week miscarriage @ 0925 on 12/29/16 PATIENT: VALERIA CASTILLO /AGE: 12 1990 (Age: 26) PATIENT #: [id number] ALT CASE #: SPECIMEN COLLECTION DATE: 12/29/2016 SPECIMEN RECEIVED DATE: 12/30/2016 [facility] - [id number] [place] [address] - PHONE: [phone] * * * END OF REPORT * * *
--- NOTE | 2017-01-06 18:12 | HP ---
ADMIT DATE: CHIEF COMPLAINT AND HISTORY OF PRESENT ILLNESS: This patient is a 26-year-old old female who came to the Emergency Room because of with bleeding associated with pelvic pain. She is a 3, para 1, 1 and 1 miscarriage approximately 17 weeks with the last menstrual period of 08/29/2016. She did have a sonogram, which shows intrauterine with heart tones of 136 per minute and has less amniotic fluid. The patient was admitted for observation because of the vaginal bleeding. PREVIOUS HISTORY: One miscarriage, one . ALLERGIES: None known. REVIEW OF SYSTEMS: Essentially negative. PHYSICAL EXAMINATION: VITAL SIGNS: Being stable. ABDOMEN: Feels soft. PELVIC: Shows mild vaginal bleeding. Cervical os is closed and has some vaginal drainage. On bimanual exam, uterus feels about 16 weeks' size uterus and somewhat tender to palpate. EXTREMITIES: No edema of feet. IMPRESSION: 3, para 1, term with bleeding, rule out placenta previa. PLAN: Observation and further treatment. SUSY CHAWLA MD DR: LIONEL/margo JOB#: [id number] / [id number]
== END 2016-12-30 10:18 | disposition home or self-care (01) | DRG 779 ==
LOC: ER 19:16 → 4 NORTH 21:51 → 3 SO LND 12-29 04:30 → 3 NORTH 12-29 16:00
PROVIDERS: ADMIT Obstetrics & Gynecology; ATTEND Obstetrics & Gynecology
DX: O03.4 Incomplete spontaneous abortion without complication (principal); O46.92 Antepartum hemorrhage, unspecified, second trimester; D72.829 Elevated white blood cell count, unspecified; R00.0 Tachycardia, unspecified; Z3A.14 14 weeks gestation of pregnancy
CPT/HCPCS: 36415; 76815; 80048; 81001; 83605; 85007; 85027; 86850; 86900; 86901; 87040; 87086; 88305; 96361; 96374; 96375; J2270; J2405; J2590; J3490; J7030; 99285-25